=== PATIENT | female | born 1995 | race Caucasian/White ===

== ENCOUNTER 2018-09-05 11:16 | Emergency (ER) | payer BC ==
[~2018-09-05] VITALS: Ht 167.6 cm; Wt 109.1 kg
[2018-09-05 11:22] VITALS: BP 122/65; TEMP 97.3
[2018-09-05 11:59] LABS: BASO # 0.1 (0.0-0.2); BASO % 0.9 % (0.0-2.0); EOS # 0.5 (0.0-0.7); EOS % 6.6 % (0-4.0); GRAN # 3.7 (1.4-6.5); HEMATOCRIT 39.8 % (37.0-47.0); HEMOGLOBIN 13.2 g/dl (12.5-16.0); LYMPH # 2.4 (1.2-3.4); LYMPH % 34.3 % (20.0-51.0); MEAN CELL VOLUME 83 fl (80.0-100.0); MEAN CORPUSCULAR HEMOGLOBIN 27 pg (27.0-31.0); MEAN CORPUSCULAR HGB CONC 33 g/dl (33.0-37.0); MEAN PLATELET VOLUME 11.2 fl (7.4-10.4); MONO # 0.4 (0.1-0.6); MONO % 6.1 % (1.7-9.3); PLATELET COUNT 307 K/mm3 (130-400); RED BLOOD COUNT 4.81 M/mm3 (4.10-5.30); REDCELL DISTRIBUTION WIDTH-CV 12.7 % (11.5-14.5)
[2018-09-05 12:08] LABS: ALANINE AMINOTRANSFERASE 12 U/L (9-52); ALKALINE PHOSPHATASE 79 U/L (50-136); ANION GAP 6 mmol/L (7-16); AST,SGOT 15 U/L (15-37); BILIRUBIN,TOTAL 0.1 mg/dL (0.0-1.0); BLOOD UREA NITROGEN 13 mg/dL (7-17); CALCIUM 9.2 mg/dL (8.4-10.2); CARBON DIOXIDE 26 mmol/L (22-30); CHLORIDE 108 mmol/L (98-107); GLUCOSE 92 mg/dL (74-106); POTASSIUM 4.2 mmol/L (3.4-5.0); SODIUM 140 mmol/L (137-145); TOTAL PROTEIN 7.2 gm/dL (6.4-8.2)
[2018-09-05 12:13] LABS: COLLECTION METHOD CLEAN CATCH
[2018-09-05 12:14] LABS: ACETAMINOPHEN < 10 ug/mL (10-30); ALCOHOL(ethanol),MEDICAL < 10 mg/dL; SALICYLATE < 1.0 mg/dL
[2018-09-05 12:24] LABS: MUCOUS Present /lpf; PH 5 (5-8); URINE APPEARANCE Hazy; URINE BACTERIA Rare /hpf; URINE BILIRUBIN Negative (NEGATIVE); URINE BLOOD 1+ (NEGATIVE); URINE COLOR Yellow; URINE GLUCOSE Negative (NEGATIVE); URINE KETONE Negative (NEGATIVE); URINE LEUKOCYTE ESTERASE Negative (NEGATIVE); URINE NITRATE Negative (NEGATIVE); URINE PROTEIN(semi-quant) Negative (NEGATIVE); URINE UROBILINOGEN Negative (NEGATIVE)
[2018-09-05 12:30] LABS: TRICYCLIC ANTIDEPRESS URINE NEGATIVE
[2018-09-05 15:00] VITALS: PULSE 76
== END 2018-09-05 15:00 | disposition home or self-care (01) ==
LOC: COL.ER 11:16
PROVIDERS: Nurse Practitioner
DX: F31.9 Bipolar disorder, unspecified (principal); Z98.51 Tubal ligation status

== ENCOUNTER → 2019-10-10 | Outpatient (CLI) | payer BC ==
[~2019-10-10] MED LIST: LAMICTAL XR100 MG PO; MINIPRESS2 MG PO; PROZAC 10MG10 MG PO; VRAYLAR1.5 MG PO; ZYPREXA7.5 MG PO
== END ==
LOC: LIGHT 15:48
DX: Z02.89 Encounter for other administrative examinations (principal)

== ENCOUNTER → 2020-02-22 | Outpatient (CLI) | payer BC ==
[~2020-02-22] VITALS: Ht 167.6 cm; Wt 128.6 kg
[~2020-02-22] MED LIST changes: +ADIPEX-P37.5 MG PO; -LAMICTAL XR100 MG PO; +LAMICTAL XR200 MG PO
[2020-02-22 14:30] VITALS: BP 110/80; PULSE 88
== END ==
LOC: LIGHT 11-16 14:37
DX: E66.01 Morbid (severe) obesity due to excess calories (principal); Z68.42 Body mass index [BMI] 45.0-49.9, adult; I10 Essential (primary) hypertension; E78.5 Hyperlipidemia, unspecified; F50.81 Binge eating disorder
CPT/HCPCS: G0463

== ENCOUNTER → 2020-03-18 | Outpatient (CLI) | payer BC ==
[~2020-03-18] VITALS: Ht 167.6 cm; Wt 127.7 kg
[~2020-03-18] MED LIST changes: +D3-5050000 IU PO; +NATURAL IRON65 MG PO
[2020-03-18 16:32] VITALS: BP 140/66; PULSE 72
== END ==
LOC: LIGHT 09:38
DX: E66.01 Morbid (severe) obesity due to excess calories (principal); Z68.42 Body mass index [BMI] 45.0-49.9, adult; M54.5 Low back pain
CPT/HCPCS: G0463

== ENCOUNTER → 2020-04-04 | Outpatient (CLI) | payer BC ==
[~2020-04-04] VITALS: Ht 167.6 cm; Wt 127.7 kg
[2020-04-04 16:42] VITALS: BP 116/60; PULSE 92
== END ==
LOC: LIGHT 11:32
DX: E66.01 Morbid (severe) obesity due to excess calories (principal); Z68.42 Body mass index [BMI] 45.0-49.9, adult; I10 Essential (primary) hypertension; F32.9 Major depressive disorder, single episode, unspecified; F50.81 Binge eating disorder; E78.5 Hyperlipidemia, unspecified
CPT/HCPCS: G0463

== ENCOUNTER → 2020-04-30 | Outpatient (CLI) | payer BC ==
[~2020-04-30] VITALS: Ht 167.6 cm; Wt 126.8 kg
[2020-04-30 16:32] VITALS: BP 130/64; PULSE 68
== END ==
LOC: LIGHT 11:26
DX: E66.01 Morbid (severe) obesity due to excess calories (principal); Z68.42 Body mass index [BMI] 45.0-49.9, adult; I10 Essential (primary) hypertension
CPT/HCPCS: G0463

== ENCOUNTER → 2020-05-01 | Outpatient (CLI) | payer BC | LOC: BHSO 09:00 ==

== ENCOUNTER 2020-05-23 11:00 | Inpatient (IN) | payer BC ==
[~2020-05-23] VITALS: Ht 167.6 cm; Wt 123.6 kg
[2020-06-19] VITALS (475 sets, daily range): BP systolic 135–161; BP diastolic 79–95; PULSE 83–95; TEMP 97.5–99.1; O2SAT 96–100
[2020-06-19] MEDS ORDERED: VTAMINC250TA PO (06:10)
[2020-06-19] MEDS ORDERED: VRAYLAR3 MG PO (06:11)
[2020-06-19] MEDS ORDERED: VITAMIN D 50,1.25 MG PO (06:11)
--- NOTE | 2020-06-19 06:25 | NUR ---
The patient ambulated back to [place] independently using a steady gait and appeared to tolerate the activity well. Vital signs obtained. Consent signed. 18G IV started in left hand with one stick, LR infusing without difficulty. Heart Reg. Lungs clear. Bowel sounds audible. brought back to be at her bedside. Call light is within reach. The patient denies any further needs at this time. Will continue to monitor the patient.
--- NOTE | 2020-06-19 11:03 | NUR ---
PATIENT ARRIVED TO UNIT VIA BED. INCISION SITES CHECKED WITH SURGICAL NURSE. NO CONCERNS OR COMPLAINTS NOTED FROM PATIENT AT THIS TIME. ACCOMPANYING PATIENT. WILL CONTINUE TO MONITOR
[2020-06-20] VITALS (232 sets, daily range): BP systolic 114–145; BP diastolic 55–83; PULSE 67–89; TEMP 97.2–98.8; O2SAT 96–100
--- NOTE | 2020-06-20 05:45 | NUR ---
Pt up to chair, SBA assist to chair, tolerated well. Pt denies dizziness and only slight increase in pain in abd. Pt able to do own bathing and oral cares when up. Abd incision sites x5 CDI. LIANNA drain to left abd, draining bright red blood, approx 15ml overnight, dressing CDI. 0645: Pt assisted back to bed, SBA. Tolerated well.
[2020-06-20 07:14] LABS: BASO % 0.1 % (0.0-2.0); EOS % 0.1 % (0-4.0); GRAN # 11.2 (1.4-6.5); GRAN % 76.9 % (42.2-75.2); HEMATOCRIT 41.4 % (37.0-47.0); HEMOGLOBIN 13.4 g/dl (12.5-16.0); LYMPH # 2.1 (1.2-3.4); LYMPH % 14.5 % (20.0-51.0); MEAN CELL VOLUME 84 fl (80.0-100.0); MEAN CORPUSCULAR HEMOGLOBIN 27 pg (27.0-31.0); MEAN CORPUSCULAR HGB CONC 32 g/dl (33.0-37.0); MEAN PLATELET VOLUME 11.7 fl (7.4-10.4); MONO # 1.2 (0.1-0.6); MONO % 8.1 % (1.7-9.3); PLATELET COUNT 330 K/mm3 (130-400); RED BLOOD COUNT 4.92 M/mm3 (4.10-5.30); REDCELL DISTRIBUTION WIDTH-CV 13.6 % (11.5-14.5)
[2020-06-20 07:27] LABS: CALCIUM 9.1 mg/dL (8.4-10.2); CREATININE, serum 0.74 (0.52-1.25); POTASSIUM 4.2 mmol/L (3.4-5.0)
--- NOTE | 2020-06-20 11:04 | NUR ---
Way Inspector met [facility] patient to discuss discharge plan. 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 Patient sees [facility] for primary care and obtains medications from [facility] with no difficulties. Patient does not use any DME and reports independence with ADLS. Patient does not have Advance Directives and was not interested in designating DPOA-HC at this time. Patient states she plans to return home at discharge with her providing transportation. SW contacted patient's , Valerio to review discharge plan. Valerio has no concerns about patient returning home at this time. SW will continue to follow as needed.
--- NOTE | 2020-06-20 13:19 | NUR ---
Report called to Ana KERNS. To transfer to room 322-2
[2020-06-20] MEDS ORDERED: LAMICTAL200 MG PO (14:06)
--- NOTE | 2020-06-20 19:20 | NUR ---
Report received, assumed care for night clerk auditor. Assessment complete. A&Ox3-drowsy. VS stable. Denies nausea/shortness of breath. Rating pain 7/10 to abdomen-described as sharp intermittent pains with constant ache-hydrocodone given per dr order. Instructed to ambulate as well. 5 lap sites CDI. LIANNA to left abdomen with serosanguineous fluid. Tolerating PO. Voiding without difficulty. Plan of care discussed for this shift to include HS meds/pain meds/ambulation/calling for needs. Denies questions/concerns. Call light in reach. Will monitor.
--- NOTE | 2020-06-20 19:28 | NUR ---
PATIENT ARRIVED VIA WC FROM PACU TO BED 322 AROUND 1430. PATIENT DENIED PAIN AT THIS TIME AND WAS A SBA TO GET INTO BED. PATIENT HAS RECIEVED TWO PRN DOSES OF HYDROCODONE/ACETAMINOPHEN ORAL SOLUTION AND HAS VOIDED ONCE IN THE TOILET SINCE [place] REMOVED. UTILIZED HEAT THERAPY TO ABDOMEN THIS SHIFT WELL. ACCOUNT MANAGER SALES REPRESENTATIVE REMOVED, PT RECEIVED 16.50 MLS
--- NOTE | 2020-06-20 23:15 | NUR ---
Called with c/o pain to abdomen-desribed as ache with intermittent sharp pains-rating pain 6/10 on pain scale. Hydrocodone given per dr order. Up to ambulate.
--- NOTE | 2020-06-21 03:07 | NUR ---
C/O pain to abdomen-rating pain 7/10 on pain scale-described as constant throbbing. Hydrocodone given per dr order.
--- NOTE | 2020-06-21 03:45 | NUR ---
Called stating pain has not gotten any better with first dose of hydrocodone. Second dose of hydrocodone given at this time per dr miranda
[2020-06-21 04:30] VITALS: BP 136/68; PULSE 88; TEMP 98
[2020-06-21 06:40] LABS: BASO % 0.4 % (0.0-2.0); EOS # 0.1 (0.0-0.7); EOS % 1.5 % (0-4.0); GRAN # 4.6 (1.4-6.5); GRAN % 54.4 % (42.2-75.2); HEMATOCRIT 37.6 % (37.0-47.0); HEMOGLOBIN 12.1 g/dl (12.5-16.0); LYMPH # 2.9 (1.2-3.4); LYMPH % 34.6 % (20.0-51.0); MEAN CELL VOLUME 84 fl (80.0-100.0); MEAN CORPUSCULAR HEMOGLOBIN 27 pg (27.0-31.0); MEAN CORPUSCULAR HGB CONC 32 g/dl (33.0-37.0); MEAN PLATELET VOLUME 11.2 fl (7.4-10.4); MONO # 0.8 (0.1-0.6); MONO % 8.9 % (1.7-9.3); PLATELET COUNT 261 K/mm3 (130-400); RED BLOOD COUNT 4.47 M/mm3 (4.10-5.30); REDCELL DISTRIBUTION WIDTH-CV 13.7 % (11.5-14.5)
[2020-06-21 06:52] LABS: CALCIUM 8.7 mg/dL (8.4-10.2); CREATININE, serum 0.79 (0.52-1.25); POTASSIUM 4.1 mmol/L (3.4-5.0)
--- NOTE | 2020-06-21 07:31 | NUR ---
Patient up in room as tolerates. Patient asks what has to be done for her to get out of here today. Explain that it is encouraged that she ambulate today and that we will need to wait on Dr. Strauss to see if she can discharge. Rating pain in left abd 5/10 where LIANNA is, would like pain medication. Will administer as prescribed. Lap sites to abd x5 with bandaids all intact. Some discharge noted on dressing to LIANNA. LIANNA is compressed with minimal blood tinged discharge in bulb. Patient says that she is passing gas. Denies any other concerns or needs.
[2020-06-21 07:47] VITALS: BP 148/78; PULSE 79; TEMP 98.2
--- NOTE | 2020-06-21 08:50 | NUR ---
Patient reports pain medication has decreased pain to 3/10. Offered to assist patient in shower. Patient declines at this time and says that she would prefer to wait until she gets home, which she is hoping will be today, but if not she will have her spouse bring up some shampoo and she will shower later. Patient denies any additional needs at this time.
--- NOTE | 2020-06-21 09:26 | NUR ---
Initial visit; Tanya thanked Flour Tester for offering comfort and God's blessings.
--- NOTE | 2020-06-21 11:17 | NUR ---
Lying in bed with eyes open. Rates pain 6/10 in abd and would like pain medication. Medication administered as prescribed. Patient denies any additional needs.
[2020-06-21 12:33] VITALS: BP 146/78; PULSE 87; TEMP 98
[2020-06-21] MEDS ORDERED: NORCOELIX PO (13:30)
[2020-06-21] MEDS ORDERED: ZOFRAN 4MG T4 MG/TAB PO (13:31)
--- NOTE | 2020-06-21 13:54 | NUR ---
Discussed with the patient and her spouse procedure for LIANNA drain removal. Area cleaned with alcohol pad. Stitch cut and removed from skin. Drain pulled at this time with all intact. Pressure applied at site. Applied two 4x4s and reinforced with tegaderm. Explain that we will get her discharge paperwork together and return to give her the instructions. Patient will get dressed at this time and gather all belongings.
--- NOTE | 2020-06-21 14:11 | NUR ---
Reviewed discharge instructions with the patient and her spouse. Deny any questions and signs paperwork. Discharge packet provided to the patient.
--- NOTE | 2020-06-21 14:25 | NUR ---
Patient assisted out to POV via wheelchair by this nurse. Spouse has all belongings.
[2020-06-24] MEDS ORDERED: FLINTSTONES W/I1 CTB PO (15:39)
== END 2020-06-21 14:25 | disposition home or self-care (01) | DRG 621 ==
LOC: INPTSU 06-19 05:35 → SURG 06-19 07:30 → ICU 06-19 11:11 → SURG 06-20 13:45
PROVIDERS: ADMIT Surgery
PROC: 0D164ZA Bypass Stomach to Jejunum, Percutaneous Endoscopic Approach (ICD-10-PCS; principal; 2020-06-19 07:30)
DX: E66.01 Morbid (severe) obesity due to excess calories (principal); Z68.42 Body mass index [BMI] 45.0-49.9, adult; F31.9 Bipolar disorder, unspecified; M15.9 Polyosteoarthritis, unspecified
CPT/HCPCS: A4314; A9284; C9113; J0330; J1100; J1170; J1650; J1885; J1956; J2405; J2550; J2704; J3010; J3480; J7120

== ENCOUNTER 2020-06-23 20:11 | Emergency (ER) | payer BC ==
[~2020-06-23] VITALS: Ht 167.6 cm; Wt 125.0 kg
[~2020-06-23 20:11] MED LIST changes: +LAMICTAL200 MG PO; +NORCOELIX PO; +VITAMIN D 50,1.25 MG PO; +VRAYLAR3 MG PO; +VTAMINC250TA PO; +ZOFRAN 4MG T4 MG/TAB PO
[2020-06-23 20:15] VITALS: BP 119/79; TEMP 99.1
[2020-06-23] MEDS ORDERED: NEURONTIN300 MG/CAP PO (20:34)
[2020-06-23 21:30] VITALS: PULSE 96
[2020-06-24] MEDS ORDERED: FLINTSTONES W/I1 CTB PO (15:39)
== END 2020-06-23 21:35 | disposition home or self-care (01) ==
LOC: COL.ER 20:11
DX: M79.651 Pain in right thigh (principal); R20.2 Paresthesia of skin; F31.9 Bipolar disorder, unspecified; E66.9 Obesity, unspecified; Z98.84 Bariatric surgery status; Z68.41 Body mass index [BMI] 40.0-44.9, adult
CPT/HCPCS: J2270

== ENCOUNTER 2020-11-27 23:18 | Emergency (ER) | payer BC ==
[~2020-11-27] VITALS: Ht 167.6 cm; Wt 103.6 kg
[~2020-11-27 23:18] MED LIST changes: +FLINTSTONES W/I1 CTB PO; +NEURONTIN300 MG/CAP PO
[2020-11-27] MEDS ORDERED: PAXIL 10MG10 MG PO (23:34)
[2020-11-28 00:29] VITALS: BP 124/78; PULSE 74; TEMP 98.7
== END 2020-11-28 00:29 | disposition home or self-care (01) ==
LOC: COL.ER 23:18
DX: H18.893 Other specified disorders of cornea, bilateral (principal); F31.9 Bipolar disorder, unspecified; F41.9 Anxiety disorder, unspecified